=== PATIENT | female | born 2005 | race Caucasian/White ===

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

== ENCOUNTER → 2023-09-12 | Outpatient (CLI) | payer OTHER ==
--- NOTE | 2023-09-12 11:19 | USB ---
Reason for Exam: Clinical finding. Patient History: Menarche at age 11. 05/07/2021, Benign Core Biopsy on the left side. Technique: Method: Targeted. Findings: The area of palpable concern of the left breast, the lower section of the breast of the left breast, the axilla of the left breast and the retroareolar of the left breast were scanned. Targeted ultrasound of the patient's palpable site inferiorly. Scanning was performed 5:00 to 7:00 position including the subareolar region and axilla. Very dense tissues are present but no solid or cystic lesion or axillary lymphadenopathy. Overall Assessment: Benign, BI-RAD 2 Management: Screening Mammogram of both breasts at age 38. Unless there is an indication to start sooner. A clinical breast exam by your physician is recommended on an annual basis and results should be correlated with mammographic findings. This exam should not preclude additional follow-up of suspicious palpable abnormalities. Results were given to the patient verbally at the time of exam. Electronically signed and approved by: Cindi Jimenez M.D. Radiologist
== END | disposition home or self-care (01) ==
LOC: RADUSWWP 10:32
PROVIDERS: ATTEND Surgery
DX: N60.02 Solitary cyst of left breast (principal)

== ENCOUNTER → 2023-09-23 | Outpatient (CLI) | payer OTHER ==
[2023-09-23 13:22] VITALS: BP 90/66; PULSE 73; RESP 16
--- NOTE | 2023-09-23 14:14 | P.PN ---
Subjective Progress Note Date: 09/23/23 09-22-23 Principal diagnosis: resection juvenile fibroadenoma left breast 08-25-21 06-25-22 Lupe is a 16 year old white female seen in consultation for Dr. Fletcher regarding bilateral breast masses. She had been able to feel the spot in her left breast for several weeks. It was painful if she pressed on it. She is not complaining of pain in her right breast. She had a bilateral breast ultrasound performed on . In the left breast this revealed a 3.2 x 2.8 cm solid lesion at 9:00 and in the right breast no cystic or solid lesion was identified. Then she underwent a left breast ultrasound-guided core biopsy which revealed a juvenile fibroadenoma. The patient on underwent resection of the fibroadenoma. She tolerated the procedure without difficulty. Pathology revealed benign juvenile fibroadenoma. The patient on 1522 underwent a u ltrasound of the left breast. This revealed some superficial scar with no evidence of previous fibroadenoma. She is not complaining of any new lumps masses or nodules in either breast. She is not complaining of any trauma or infection in her breast. 09-22-23 left breast ultrasound 09-12-23 BIRAD 2 no solid or cystic masses noted She is not complaining of any lumps masses or nodules of concern The patient had a fibroadenoma removed from the upper inner area of the right breast. Approximately 1 month ago she felt some fullness in the lower outer quadrant of the left breast, ultrasound was done of the area of palpable concern for the patient. That ultrasound was on 09-12-2023. That did not show any lesions of concern. The area of resection of the prior adding fibroadenoma however was not scanned. The last ultrasound of the area of the left breast where the lesion had been resected was on 03-18-2022. At that time this was a BI-RADS 2 and no lesions of concern were noted in the left breast. Caffiene: pepsi daily nicotine: none chocolate: occasional Family history: maternal grandmother: fibroadenomas no cancer paternal grandfather: cancer ? type Hormonal History: menarche: 10 not sexually active periods active BCP: none hormones: none Surgical History: breast resection of fibroadenoma Medical History: none Social History: Nicotine: Negative Alcohol: Negative Drugs: Negative - Constitutional Constitutional: Denies chills, Denies fever - EENT Eyes: denies blurred vision, denies pain Ears: deny: decreased hearing, tinnitus Ears, nose, mouth and throat: Denies headache, Denies sore throat - Breasts Breasts: bilateral: as per HPI - Cardiovascular Cardiovascular: Denies chest pain, Denies shortness of breath - Respiratory Respiratory: Denies cough - Gastrointestinal Gastrointestinal: Denies abdominal pain, Denies diarrhea, Denies nausea, Denies vomiting - Genitourinary (Female) Genitourinary: Denies dysuria, Denies hematuria - Menstruation Menstruation: Reports period normal - Musculoskeletal Musculoskeletal: Denies myalgias - Integumentary Integumentary: Denies pruritus, Denies rash - Neurological Neurological: Denies numbness, Denies weakness - Psychiatric Psychiatric: Denies depression - Endocrine Endocrine: Denies fatigue, Denies weight change - Hematologic/Lymphatic Comment: none - Allergic/Immunologic Allergic/Immunologic: Reports as per HPI Past Medical History History of Any Multi-Drug Resistant Organisms: None Reported Smoking Status: Never smoker Medications and Allergies Home Medications Medication Instructions Recorded Confirmed Type No Known Home Medications 05/01/21 05/01/21 History Allergies Allergy/AdvReac Type Severity Reaction Status Date / Time No Known Allergies Allergy Unverified 05/01/21 15:06 Objective - Vital Signs Vital signs: Vital Signs Temp Pulse 73 09/23/23 13:13 Resp 16 09/23/23 13:13 BP 90/66 09/23/23 13:13 Pulse Ox 99 09/23/23 13:13 FiO2 Intake & Output 09/22/23 09/23/23 09/23/23 18:59 06:59 18:59 Weight 58.967 kg - Constitutional General appearance: Present: cooperative - EENT Eyes: Present: EOMI ENT: Present: hearing grossly normal - Neck Neck: Present: normal ROM - Respiratory Respiratory: bilateral: CTA - Cardiovascular Heart sounds: normal: S1, S2 - Integumentary Integumentary: Present: normal turgor - Musculoskeletal Musculoskeletal: Present: gait normal - Psychiatric Psychiatric: Present: A&O x's 3, appropriate affect, intact judgment & insight - Additional findings Additional findings: Breast Exam: BRA: medium inspection: Well-healed scar left breast upper inner quadrant Bilateral grade 1/2 ptosis Palpation: Right breast: Very dense breast no discrete dominant masses or nodules of concern Right axilla: No adenopathy of concern Left breast: Dense breasts no dominant masses or nodules of concern Left axilla: No adenopathy of concern Assessment and Plan Assessment: Impression: Fibrocystic breast changes No evidence of recurrent left breast fibroadenoma No left breast lesions in the lower outer quadrant on examination or on ultrasound Plan: Left breast complete breast ultrasound in 6 months with examination at that time Follow-up sooner any questions or concerns CC: Dr. Fletcher
== END ==
LOC: WWCWWP 12:40
PROVIDERS: ATTEND Surgery
DX: N60.11 Diffuse cystic mastopathy of right breast (principal); N60.12 Diffuse cystic mastopathy of left breast; D24.1 Benign neoplasm of right breast

== ENCOUNTER → 2024-09-07 | Outpatient (CLI) | payer OTHER ==
--- NOTE | 2024-09-07 15:38 | USB ---
Reason for Exam: Clinical finding. Patient History: Menarche at age 11. 05/07/2021, Benign Core Biopsy on the left side. Technique: Method: Whole Breast Handheld. Findings: The whole breast of both breasts, the axilla of both breasts and the retroareolar of both breasts were scanned. Technique utilized:US breast complete BILAT Image; Ultrasound imaging of: All 4 quadrants, the retroareolar region and axilla. * Hypoechoic lesions are present first at 2:00 3 cm from nipple in the area of palpable abnormality measuring 12 x 7 x 10 mm. * 12:00 4 cm nipple 21 x 9 x 16 mm Findings most compatible with fibroadenoma given patient's age and sonographic appearance. Overall Assessment: Benign, BI-RAD 2 Management: Screening Mammogram of both breasts at age 38. A clinical breast exam by your physician is recommended on an annual basis and results should be correlated with mammographic findings. This exam should not preclude additional follow-up of suspicious palpable abnormalities. Results were given to the patient verbally at the time of exam. [facility], , 09/07/2024 3:34 PM. Electronically signed and approved by: Tyler Carranza DO
== END | disposition home or self-care (01) ==
LOC: RADUSWWP 14:59
PROVIDERS: ATTEND Family Medicine
DX: N63.12 Unspecified lump in the right breast, upper inner quadrant (principal); N63.20 Unspecified lump in the left breast, unspecified quadrant